=== PATIENT | male | born 2000 | race Two or more races ===

== ENCOUNTER 2024-11-14 11:37 | Emergency (ER) | payer OTHER, MEDICAID, SELFPAY ==
[2024-11-14 12:11] VITALS: BP 133/61; PULSE 74; RESP 18; TEMP 36.7; O2SAT 97; BMI 26.6
--- NOTE | 2024-11-14 12:31 | XR_ITS ---
Examination: Left scapula 3 views Technique: AP internal rotation AP external rotation Y-view scapula 3 views Date and time: November 14, 2024 1251 hrs. Indications: Injury to the shoulder today, shoulder pain. Findings: No shoulder fracture or dislocation No AC joint separation Impression: No shoulder fracture or dislocation
--- NOTE | 2024-11-14 12:32 | PD.EDUPEX ---
Upper Extremity Injury RME/HPI General Chief Complaint: Extremity Injury, Upper Stated Complaint: back/shoulder injury at work Time Seen by Provider: 11/14/24 12:02 Arrival date/time: 11/14/24 11:37 RME / HPI RME / HPI narrative: 24-year-old male patient came in for evaluation regarding left scapular pain. Patient was working, got hit with a pole left scapular area, resulting in the pain, described as dull ache, severity 7 out of 10 worse with stretching the upper extremity. Patient denies any shortness of breath denies any other injury no medication was taken prior to arrival. Incident happened earlier today. Patient is ambulatory Related Data Previous Rx's ?Medication ?Instructions ?Recorded acetaminophen 325 mg capsule 650 mg (2 x 325 mg) PO Q6H PRN 07/02/20 pain #30 caps naproxen 500 mg tablet (Naprosyn) 500 mg PO BID PRN pain #30 tabs 07/27/20 ibuprofen 800 mg tablet 800 mg PO Q8H PRN pain #30 tabs 11/14/24 Allergies Allergy/AdvReac Type Severity Reaction Status Date / Time meningococcal vaccine A and C Allergy Verified 11/14/24 11:40 Review of Systems Review of Systems Narrative Review of Systems: Review of system reviewed and within normal limits except mentioned in HPI ED Exam Narrative Physical exam: VITAL SIGNS: Reviewed. GENERAL APPEARANCE: Alert and interactive, follows commands, no acute distress, HEAD AND FACE: Non-traumatic. ENT: PERRL, pink conjunctivitis, eyelid no trauma, Mucous membrane moist. NECK: Supple, nontender, no nuchal rigidity. CHEST: No tenderness, no crepitus, no paradoxical movement, no retractions. LUNGS: Clear, well ventilated, symmetric, no rales, no wheezing, no ronchi, no stridor, good breath sounds bilaterally. HEART: Regular rate, regular rhythm, no murmur, no gallops. ABDOMEN: Soft, positive bowel sounds, nondistended, no guarding, nontender, no rebound, no masses, RECTAL: Deferred. GENITAL: Deferred. NEUROLOGICAL: Gross motor function intact sensory function intact, Appropriate for age. MUSCULOSKELETAL: Left scapular tenderness, with abrasion no bruising no deformity no crepitus, low back nontender, full range of motion. EXTREMITIES: Nontender, full range of motion. SKIN: Color pink, dry, no rash, no lacerations, no abrasions, no contusions. LYMPHATICS: Deferred. Course Quality Measures none Orders Category Date Time Status XR scapula LT Stat Exams 11/14/24 12:31 Completed Ketorolac Inj [Toradol Inj] Med 11/14/24 12:32 Discontinued 30 mg IM X1 ONE Vital Signs Vital signs: Vital Signs Temperature 98.1 F 11/14/24 12:11 Pulse Rate 74 11/14/24 12:11 Respiratory Rate 18 11/14/24 12:11 Blood Pressure 133/61 H 11/14/24 12:11 Pulse Oximetry (%) 97 11/14/24 12:11 Oxygen Delivery Method Room Air 11/14/24 12:11 Extremity Injury [facility] Narrative [facility] Narrative:: 24-year-old male patient came in for evaluation regarding left scapular pain. Patient was working, got hit with a pole left scapular area, resulting in the pain, described as dull ache, severity 7 out of 10 worse with stretching the upper extremity. Patient denies any shortness of breath denies any other injury no medication was taken prior to arrival. Incident happened earlier today. Patient is ambulatory X-ray of the scapula came back unremarkable. Results discussed with the patient. Patient appears nontoxic and hemodynamically stable .Decision to discharge the patient. The patient/family was given an opportunity to ask questions and understood their discharge instructions. Discharge instructions specifically included follow up provider and time frame, current and/or new medications and possible side effects, indications for sooner follow up or return to the emergency department, and the expected course of current diagnosis. Patient reports feeling better as well and giving evidence of significant clinical improvement, I believe patient is now a candidate for discharge. Patient data External records reviewed:: None Clinical information provided by:: patient Social determinants that could affect healthcare access:: none Patient has the following chronic illnesses:: None How is presenting disease/condition affected by chronic disease/condition?: no chronic disease Evaluation data The following diagnostics were reviewed and interpreted by me:: radiology exam(s) Lab and/or radiology exams considered but not ordered:: None Interpretation Summary: See results in MDM Medications / Prescriptions Medications or Prescriptions considered but not ordered:: None Medication administrations:: Medication Administration History Discontinued Medications Ketorolac Tromethamine (Ketorolac Inj 60 Mg/2 Ml Vial) 30 mg IM X1 ONE Stop: 11/14/24 12:33 Last Admin: 11/14/24 14:44 Dose: Not Given Documented By: [facility] Non-Admin Reason: Patient Refused Toradol IM Consultations Consultation(s) initiated? (list below): No Diagnosis Upper Extremity Injury Differential Diagnosis: dislocation of shoulder, fracture of clavicle and other (Scapular contusion) Most likely diagnosis given after review of the tests above:: Scapular contusion Admission Indicated Admission indicated?: not indicated Admission Request Was there a request for admission?: No Disposition Plan Disposition Plan: Discharge Discharge Attestation Discharge Attestation: The patient and all family members were given an opportunity to ask questions and understood the discharge instructions. Discharge instructions specifically effects, indications for sooner follow up or return to the emergency department, and the expected course of current diagnosis. Patient condition: Stable Discharge Plan Plan Patient Disposition: HOME (Self Care) Discharge Disposition comment: Stable Prescriptions/Referrals Prescriptions/Med Rec: New ibuprofen 800 mg tablet 800 mg PO Q8H PRN (Reason: pain) Qty: 30 0RF No Action acetaminophen 325 mg capsule 650 mg PO Q6H PRN (Reason: pain) Qty: 30 0RF naproxen [Naprosyn] 500 mg tablet 500 mg PO BID PRN (Reason: pain) Qty: 30 0RF Referrals: Suzanne Mcclellan MD [Primary Care Provider] - In 1 week Problem List Clinical Impression: Contusion of left scapula Patient/Caregiver Discharge Instructions Discharge Activity: activity as tolerated Education Materials: ED Soft Tissue Contusion Additional Instructions: Thank you for the opportunity for serving you today. You are stable for discharged . You are advised to: Follow-up with your PCP in 1 to 2 days Return to ED for worsening of symptoms Increase oral fluids Take medication as prescribed Print Language: Arabic Stand Alone Forms: Sallie Award Info., Work/School Release, Patient Portal Info Letter ROXANN/EHSAN Supervising Physician ROXANN/EHSAN Supervising Physician: MD Uziel
[2024-11-14 14:44] VITALS: BP 116/66; PULSE 54; RESP 16; TEMP 36.1; O2SAT 99
--- NOTE | 2024-11-14 14:45 | PC.NURSE ---
PT REFUSED TO HAVE PROVIDER PROVIDE WORKMANS COMP PAPERWORK, JUST WANTA DOCTORS NOTE THAT HE CAN GO BACK TO WORK
== END 2024-11-14 14:50 | disposition home or self-care (01) ==
PROVIDERS: Emergency Provider Emergency Medicine; PCP Internal Medicine
DX: S40.012A Contusion of left shoulder, initial encounter (principal); W22.09XA Striking against other stationary object, initial encounter; Y99.0 Civilian activity done for income or pay
CPT/HCPCS: 73010; 99283